=== PATIENT | female | born 1945 | race Caucasian/White ===

== ENCOUNTER 2023-06-20 17:38 | Emergency (ER) | payer MEDICARE ==
[~2023-06-20] VITALS: Ht 165.1 cm; Wt 77.0 kg
[2023-06-20] MEDS ORDERED: CRESTOR5 MG PO (18:13)
[2023-06-20] MEDS ORDERED: NAPROXEN 250 MG/TAB PO ONE (18:15)
[2023-06-20] MEDS ORDERED: DiphenhydrAMINE HCL 25 MG CPLT PO ONE (18:15)
[2023-06-20] MEDS ORDERED: METOCLOPRAMIDE HCL 10 MG/TAB PO ONE (18:15)
[2023-06-20 19:15] VITALS: BP 109/69
[2023-06-20 20:00] VITALS: BP 121/70
[2023-06-20 20:15] VITALS: BP 113/74
[2023-06-20] MEDS ORDERED: MEDDOSEPAK PO (20:38)
[2023-06-20] MEDS ORDERED: NAPROXEN500 MG PO (20:38)
[2023-06-20 21:07] VITALS: BP 113/74
== END 2023-06-20 21:05 | disposition home or self-care (01) ==
LOC: ED 17:38
DX: S80.01XA Contusion of right knee, initial encounter (principal); S80.211A Abrasion, right knee, initial encounter; R51.9 Headache, unspecified; W19.XXXA Unspecified fall, initial encounter; Y92.009 Unspecified place in unspecified non-institutional (private) residence as the place of occurrence of the external cause; Z96.651 Presence of right artificial knee joint

== ENCOUNTER 2024-05-14 11:48 | Emergency (ER) | payer MEDICARE ==
[2024-05-14] VITALS (18 sets, daily range): BP systolic 100–136; BP diastolic 51–87
[~2024-05-14] VITALS: Ht 165.1 cm; Wt 75.3 kg
[~2024-05-14 11:48] MED LIST: CRESTOR5 MG PO; LIDOCAINE MAXIMUM4 % TD; LORTAB 5/3255 MG PO; MEDDOSEPAK PO; NAPROXEN500 MG PO; PREDNISONE10 MG PO
[2024-05-14 12:32] LABS: BASO% 0.6 % (0-3); EOS% 3.4 % (0-8); HEMATOCRIT 38.1 % (37.0-47.0); HEMOGLOBIN 12.2 g/dl (12.0-16.0); IMMATURE GRANULOCYTES 1.6 % (0.0-5.0); LYMPH% 24.5 % (15-41); MEAN CELL VOLUME 93.2 fL CALC (80.0-100.0); MEAN CORPUSCULAR HGB 29.8 pG CALC (26.0-32.0); MONO% 12.6 % (2-13); NEUT# 4.01 thou/uL (2.00-7.15); NEUT% 57.3 % (42-76); RED BLOOD COUNT 4.09 mill/uL (4.20-5.60); RED CELL DISTRI WIDTH 13.1 % (11.5-15.5)
[2024-05-14 12:48] LABS: ALBUMIN 3.4 g/dL (3.2-5.0); CREATININE 0.8 mg/dL (0.5-1.0); POTASSIUM 4.1 mmol/l (3.5-5.1); TOTAL PROTEIN 5.9 g/dL (6.3-8.2)
[2024-05-14 12:54] LABS: BILIRUBIN, TOTAL 0.6 mg/dL (0.02-1.3)
[2024-05-14 13:42] LABS: URINE BILIRUBIN - DIPSTICK Negative (NEGATIVE); URINE BLOOD DIPSTICK Negative (NEGATIVE); URINE GLUCOSE - DIPSTICK Negative (NEGATIVE); URINE KETONE Negative (NEGATIVE); URINE LEUK ESTERASE Negative (NEGATIVE); URINE NITRITE - DIPSTICK Negative (Negative); URINE PROTEIN - DIPSTICK Negative (NEG-TRACE); URINE SPECIFIC GRAVITY 1.015; URINE UROBILINOGEN - DIPSTICK 0.2 E.U./dL (0.2)
[2024-05-14 13:43] LABS: URINE COLOR Yellow
[2024-05-14] MEDS ORDERED: DiphenhydrAMINE HCL 50 MG/ML SDV IV ONE (13:45)
[2024-05-14] MEDS ORDERED: METOCLOPRAMIDE HCL 10 MG/2 ML SDV IV ONE (13:45)
[2024-05-14] MEDS ORDERED: SODIUM CHLORIDE 0.9% 1,000 ML IV ONE (13:45)
[2024-05-14] MEDS ORDERED: KETOROLAC TROMETHAMINE 15 MG/ML SDV IV ONE (15:25)
[2024-05-14] MEDS ORDERED: FIORICET PO (16:42)
[2024-05-14] MEDS ORDERED: ZOFRAN4 MG/TAB PO (16:42)
[2024-05-15] MEDS ORDERED: ZOFRAN4 MG/TAB PO (11:45)
[2024-05-15] MEDS ORDERED: FIORICET PO (11:45)
== END 2024-05-14 17:04 | disposition home or self-care (01) ==
LOC: ED 11:48
PROVIDERS: Family Medicine; Nurse Practitioner
DX: G43.809 Other migraine, not intractable, without status migrainosus (principal); I10 Essential (primary) hypertension; Z20.822 Contact with and (suspected) exposure to COVID-19
CPT/HCPCS: J1100; J1200; J1885; J2765